=== PATIENT | female | born 1990 ===

== ENCOUNTER 2020-11-02 05:30 | Inpatient (IN) | payer OTHER ==
[~2020-11-02] VITALS: Ht 170.2 cm; Wt 91.8 kg
[2020-11-02] MEDS ORDERED: CHOL10003 PO (06:24)
[2020-11-02] MEDS ORDERED: PREN1TAB79 PO (06:24)
[2020-11-02 06:25] VITALS: BP 122/83
[2020-11-02] MEDS ORDERED: TERBUTALINE 1 MG/ML, 1ML IVPush PRN (07:30)
[2020-11-02] MEDS ORDERED: CALCIUM CARBONATE 500 MG TAB.CHEW PO PRN (07:30)
[2020-11-02] MEDS ORDERED: FENTANYL PF 100 MCG/2ML IV PRN ×2 (07:30→23:00)
[2020-11-02] MEDS ORDERED: TERBUTALINE 1 MG/ML, 1ML SQ PRN (07:30)
[2020-11-02] MEDS ORDERED: ONDANSETRON 2MG/ML, 2ML IVPush PRN ×2 (07:30→23:00)
[2020-11-02] MEDS ORDERED: OXYTOCIN 30U/ 0.9% NaCL 500ML 500 ML IV ONE (07:30)
[2020-11-02] MEDS ORDERED: D5%-LACTATED RINGERS 1,000 ML IV SCH (07:30)
[2020-11-02] MEDS: LACTATED RINGERS 1,000 ML IV SCH ×3 (07:47→12:48)
[2020-11-02 07:58] LABS: BASOPHILS % (AUTO) 1 % (0-1); EOSINOPHILS % (AUTO) 0 % (1-7); LYMPHOCYTES % (AUTO) 6 % (22-44); MEAN CORPUSCULAR HEMOGLOBIN 29.5 pg (27.0-34.8); MEAN CORPUSCULAR HGB CONC 33.4 g/dL (32.4-35.8); MEAN PLATELET VOLUME 8.5 fL (7.4-10.4); MONOCYTES % (AUTO) 5 % (2-9); NEUTROPHILS % (AUTO) 88 % (42-75); PLATELET COUNT 195 x10^3/uL (130-400); RED BLOOD COUNT 4.38 x10^6/uL (3.82-5.3); RED CELL DISTRIBUTION WIDTH 14.5 % (9.6-15.2)
[2020-11-02] MEDS ORDERED: LIDOCAINE 1%, 20ML ONE ×2 (08:06→08:07)
[2020-11-02] MEDS ORDERED: NEWBORN KIT ONE ×2 (08:06→13:07)
[2020-11-02] MEDS ORDERED: MISOPROSTOL 200 MCG TABLET ONE (08:06)
[2020-11-02 08:28] VITALS: BP 129/73
[2020-11-02] MEDS: FENTANYL PF 100 MCG/2ML IVPush PRN ×5 (08:41→13:38)
[2020-11-02] MEDS ORDERED: EPHEDRINE 50 MG/ML, 1ML IVPush PRN ×3 (13:00→23:00)
[2020-11-02] MEDS ORDERED: LACTATED RINGERS 1,000 ML IV SCH ×2 (13:00→14:00)
[2020-11-02] MEDS ORDERED: LACTATED RINGERS 1,000 ML IVBOLUS PRN ×2 (13:00→14:00)
[2020-11-02] MEDS ORDERED: FENTANYL/BUPIV./NS/PF 250 ML EPIDCONT SCH ×2 (13:00→14:00)
[2020-11-02] MEDS ORDERED: BUPIVACAINE 0.25% ONE (13:52)
[2020-11-02] MEDS ORDERED: NALOXONE 0.4 MG/ML, 1ML IVPush PRN (14:00)
[2020-11-02] MEDS ORDERED: OXYTOCIN 30U/ 0.9% NaCL 500ML 500 ML IV PRN (18:30)
[2020-11-02] MEDS ORDERED: ACETAMINOPHEN 500 MG TABLET ONE (21:34)
[2020-11-02] MEDS ORDERED: ACETAMINOPHEN 500 MG TABLET PO ONE (22:00)
[2020-11-02] MEDS ORDERED: AMPICILLIN 2 GM in SODIUM CHLORIDE 0.9% 100 ML IV SCH (22:00)
[2020-11-02] MEDS ORDERED: ALBUTEROL SULFATE 2.5 MG/3 ML NPPB PRN (23:00)
[2020-11-02] MEDS ORDERED: HYDROcodone/APAP 7.5-325MG/15ML UDC PO PRN (23:00)
[2020-11-02] MEDS ORDERED: METOPROLOL 1 MG/ML, 5ML IV PRN (23:00)
[2020-11-02] MEDS ORDERED: HYDROmorphone 2 MG/ML, 1ML IVPush PRN (23:00)
[2020-11-02] MEDS ORDERED: MEPERIDINE/PF 25MG/0.5ML IVPush PRN (23:00)
[2020-11-02] MEDS ORDERED: MIDAZOLAM 1 MG/ML, 2ML IV PRN (23:00)
[2020-11-02] MEDS ORDERED: LABETALOL 5MG/ML, 20ML IV PRN (23:00)
[2020-11-02] MEDS ORDERED: hydrALAzine 20 MG/ML, 1ML IV PRN (23:00)
[2020-11-02] MEDS ORDERED: OXYcodone 5 MG/5 ML ORAL.SOL UDC PO PRN (23:00)
[2020-11-02] MEDS ORDERED: PROMETHAZINE 25 MG/ML, 1ML IV PRN (23:00)
[2020-11-02] MEDS ORDERED: KETOROLAC 30 MG/1 ML ONE (23:05)
[2020-11-02] MEDS ORDERED: DEXAMETHASONE 4 MG/ML, 1ML ONE (23:05)
[2020-11-02] MEDS ORDERED: FENTANYL PF 100 MCG/2ML ONE ×2 (23:05→23:07)
[2020-11-02] MEDS ORDERED: ONDANSETRON 2MG/ML, 2ML ONE (23:05)
[2020-11-02] MEDS ORDERED: PHENYLEPHRINE 10 MG/ML ONE (23:05)
[2020-11-02] MEDS ORDERED: OXYTOCIN 10 UNITS/ML, 1ML ONE (23:05)
[2020-11-02] MEDS ORDERED: EPHEDRINE 50 MG/ML, 1ML ONE (23:05)
[2020-11-02] MEDS ORDERED: CEFAZOLIN 1,000 MG ONE (23:05)
[2020-11-02] MEDS ORDERED: SUCCINYLCHOLINE 20 MG/ML, 10ML ONE (23:05)
[2020-11-02] MEDS ORDERED: PROPOFOL 10 MG/ML, 20ML ONE (23:05)
[2020-11-02] MEDS ORDERED: morphine SULFATE/PF 0.5 MG/ML, 10ML ONE (23:07)
[2020-11-02] MEDS ORDERED: METOCLOPRAMIDE 5 MG/ML, 2ML ONE (23:12)
[2020-11-02] MEDS ORDERED: SODIUM CITRATE/CITRIC ACID 15 ML UDC ONE (23:12)
[2020-11-02] MEDS ORDERED: SODIUM CITRATE/CITRIC ACID 30 ML UDC PO ONE (23:30)
[2020-11-02] MEDS ORDERED: AZITHROMYCIN 500 MG in SODIUM CHLORIDE 0.9% 250 ML IV ONE (23:30)
[2020-11-02] MEDS ORDERED: METOCLOPRAMIDE 5 MG/ML, 2ML IV ONE (23:30)
[2020-11-02] MEDS ORDERED: LACTATED RINGERS 1,000 ML IVBOLUS ONE (23:30)
[2020-11-03] MEDS ORDERED: ACETAMINOPHEN 325 MG TABLET PO PRN ×2 (01:00)
[2020-11-03] MEDS ORDERED: ONDANSETRON 2MG/ML, 2ML IV PRN (01:00)
[2020-11-03] MEDS ORDERED: MEASLES,MUMPS&RUBELLA VACC/PF 0.5 ML SQ-VACC PRN (01:00)
[2020-11-03] MEDS ORDERED: OXYTOCIN 30U/ 0.9% NaCL 500ML 500 ML IV SCH (01:00)
[2020-11-03] MEDS ORDERED: RHOGAM FROM BLOOD BANK 1 NOTE EA IM/IV ONE (01:00)
[2020-11-03] MEDS ORDERED: MISOPROSTOL 200 MCG TABLET PR PRN (01:00)
[2020-11-03] MEDS ORDERED: LACTATED RINGERS 1,000 ML IV SCH (01:00)
[2020-11-03] MEDS ORDERED: CALCIUM CARBONATE 500 MG TAB.CHEW PO PRN (01:00)
[2020-11-03] MEDS ORDERED: METOCLOPRAMIDE 5 MG/ML, 2ML IV PRN (01:00)
[2020-11-03] MEDS ORDERED: morphine SULFATE 10 MG/ML, 1ML IVPush PRN ×2 (01:00)
[2020-11-03] MEDS: LACTATED RINGERS 1,000 ML IV SCH ×2 (01:00→09:00)
[2020-11-03 02:20] VITALS: BP 103/64
[2020-11-03] MEDS: KETOROLAC 30 MG/1 ML IV PRN ×4 (06:07→23:56)
[2020-11-03 07:45] VITALS: BP 102/61
[2020-11-03 08:05] LABS: MEAN CORPUSCULAR HEMOGLOBIN 29.3 pg (27.0-34.8); MEAN CORPUSCULAR HGB CONC 33.2 g/dL (32.4-35.8); MEAN PLATELET VOLUME 8.2 fL (7.4-10.4); PLATELET COUNT 183 x10^3/uL (130-400); RED CELL DISTRIBUTION WIDTH 14.6 % (9.6-15.2)
[2020-11-03 08:45] LABS: LYMPH#(MANUAL) 0.71 x10^3/uL (1-3.4); LYMPHS% (MANUAL) 3 % (22-44); MONOS#(MANUAL) 1.18 x10^3/uL (0.3-2.7); MONOS% (MANUAL) 5 % (2-9)
[2020-11-03 08:46] LABS: <PLATELET ESTIMATE> ADEQUATE; <PLT MORPHOLOGY> NORMAL PLT MORPH; <RBC MORPHOLOGY> NORMAL; BAND#(MANUAL) 2.35 x10^3/uL; BANDS%(MANUAL) 10 % (0-7); SEG#(MANUAL) 19.27 x10^3/uL (1.8-6.8); SEGS% (MANUAL) 82 % (42-75)
[2020-11-03] MEDS ORDERED: PRENATAL VIT/IRON/FA 1 EACH TABLET PO SCH (09:00)
[2020-11-03 12:10] VITALS: BP 100/60
[2020-11-03 16:40] VITALS: BP 96/58
[2020-11-03 20:45] VITALS: BP 108/74
[2020-11-03] MEDS: SIMETHICONE 80 MG CHEW TAB PO PRN (22:37)
[2020-11-03 23:55] VITALS: BP 98/61
[2020-11-03] MEDS: OXYcodone/APAP 5/325MG TABLET PO PRN (23:58)
[2020-11-04] MEDS: IBUPROFEN 600 MG TABLET PO PRN ×3 (06:33→20:29)
[2020-11-04 07:25] VITALS: BP 98/62
[2020-11-04] MEDS: DOCUSATE 100 MG CAPSULE PO PRN ×2 (08:34→20:29)
[2020-11-04] MEDS: OXYcodone/APAP 5/325MG TABLET PO PRN ×4 (08:36→20:29)
[2020-11-04] MEDS: PRENATAL VIT/IRON/FA 1 EACH TABLET PO SCH (10:03)
[2020-11-04 19:35] VITALS: BP 102/65
[2020-11-04] MEDS: SIMETHICONE 80 MG CHEW TAB PO PRN (20:28)
[2020-11-05] MEDS: IBUPROFEN 600 MG TABLET PO PRN ×2 (03:03→13:28)
[2020-11-05] MEDS: OXYcodone/APAP 5/325MG TABLET PO PRN ×2 (03:04→13:28)
[2020-11-05 07:45] VITALS: BP 157/90
[2020-11-05] MEDS ORDERED: OXYC1TAB14 PO (10:29)
[2020-11-05] MEDS ORDERED: IBUP-1222 PO (10:29)
[2020-11-05 12:00] VITALS: BP 115/74
[2020-11-05] MEDS: PRENATAL VIT/IRON/FA 1 EACH TABLET PO SCH (13:28)
[2020-11-05] MEDS: DOCUSATE 100 MG CAPSULE PO PRN (13:28)
== END 2020-11-05 14:00 | disposition home or self-care (01) | DRG 787 ==
LOC: LDOP 05:30 → LDIP 07:16 → 2NW 11-03 02:15
PROVIDERS: ADMIT Obstetrics & Gynecology; ATTEND Obstetrics & Gynecology
PROC: 10D00Z1 Extraction of Products of Conception, Low, Open Approach (ICD-10-PCS; principal; 2020-11-02)
PROC: 10H07YZ Insertion of Other Device into Products of Conception, Via Natural or Artificial Opening (ICD-10-PCS; 2020-11-02)
DX: O77.0 Labor and delivery complicated by meconium in amniotic fluid (principal); O63.9 Long labor, unspecified; Z37.0 Single live birth; Z3A.40 40 weeks gestation of pregnancy; O36.63X0 Maternal care for excessive fetal growth, third trimester, not applicable or unspecified; O32.8XX0 Maternal care for other malpresentation of fetus, not applicable or unspecified; O62.1 Secondary uterine inertia
CPT/HCPCS: 36415; J7121; 85025; 86592; 86850; 86900; 87635; G0378; J0456; J0690; J1100; J1170; J1885; J2274; J2405; J2704; J3010; J0330; J2370; J2590; J2765; J7050; J7120